=== PATIENT | male | born 1965 | race Hispanic/Latino ===

== ENCOUNTER → 2017-12-01 | Day surgery (SDC) | payer BC ==
[2017-11-30 12:48] LABS: BASOPHILS # (AUTO) 0.1 (0.0-0.1); BASOPHILS % 0.7 % (0.0-1.0); EOSINOPHILS # (AUTO) 0.4 (0.0-0.4); EOSINOPHILS % 6.1 % (0.0-6.0); HEMATOCRIT 37.1 % (38.2-49.6); HEMOGLOBIN 12.6 g/dL (14.0-18.0); LYMPHOCYTES # (AUTO) 1.7 (1.0-3.2); LYMPHOCYTES % 24.6 % (18.0-39.1); MEAN CORPUSCULAR HEMOGLOBIN 33.8 pg (28-32); MEAN CORPUSCULAR VOLUME 99.5 fL (81-99); MONOCYTES # (AUTO) 0.6 (0.2-0.8); MONOCYTES % 8.8 % (4.4-11.3); NEUTROPHILS # (AUTO) 4.1 (2.1-6.9); NEUTROPHILS % 59.4 % (38.7-80.0); PLATELET COUNT 223 x10e3/uL (140-360); RED BLOOD COUNT 3.73 x10e6/uL (4.3-5.7); RED CELL DISTRIBUTION WIDTH 13.9 % (11.7-14.4)
[2017-11-30 13:05] LABS: ANION GAP 13.9 mmol/L (8-16); CALCIUM 9.3 mg/dL (8.4-10.2); CREATININE, SERUM 1.49 mg/dL (0.72-1.25); POTASSIUM 4.9 mmol/L (3.5-5.1)
--- NOTE | 2017-11-30 13:25 | Diagnostic Imaging Report ---
PROCEDURE:CHEST 2 VIEWS TECHNIQUE:PA and lateral chest INDICATION:Preoperative evaluation for hernia repair COMPARISON:None. FINDINGS: Lungs are clear and symmetrically inflated. No pleural effusions. Normal heart size. Mild central vascular prominence. Intact skeleton. CONCLUSION: Mild central vascular congestion without acute abnormality. Dictated by: Dante Powell M.D. on 11/30/2017 at 13:28 Electronically approved by: Dante Powell M.D. on 11/30/2017 at 13:28
[~2017-12-01] MED LIST: AMLODIPINE BESYL5 MG PO; ASPIR 8181 MG; ATORVASTATIN CA10 MG PO; BUPIVACAINE 0.25%/EPI 30ML SDV INJ ONE; CARVEDILOL12.5 MG PO; CLOPIDOGREL75 MG PO; FENTANYL CITRATE/PF 100MCG/2 ML INJ ONE; FOLIC ACID1 MG PO; HYDROCHLOROTHIA25 MG; ISOSORBIDE DINI20 MG PO; KETAMINE HCL INJ 50 MG/ML 10 ML VIAL ONE; LISINOPRIL2.5 MG PO; MIDAZOLAM HCL 2 MG/2 ML VIAL ONE; PROPOFOL IV EMULSION 10 MG/ML 20 ML VIAL ONE; SEVOFLURANE INHAL SOLN 250 ML PEN BTL ONE
--- OUTSIDE RECORDS SUMMARY | 2017-12-01 08:25 | XMS REPORT ---
Author Author [facility] Address Unknown Phone Unavailable Care Team Providers Care Motor Coach Bus Driver Name Role Phone MACKENZIE BOYCE Unavailable Unavailable Problems This patient has no known problems. Allergies, Adverse Reactions, Alerts This patient has no known allergies or adverse reactions. Medications This patient has no known medications. Results Test Description Test Time Test Comments Text Results Atomic Results Result Comments CHEST 2 VIEWS [place] [address] Patient Name: BEATRIS DANGELO MR #: [id number] : 1965 Age/Sex: 52/M Req #: [id number] Adm Physician: Ordered by: MACKENZIE BOYCE MD Report #: [id number] Location: OR Room/Bed: Procedure: [id number] DX/CHEST 2 VIEWS Exam Date: 11/30/17 Exam Time: 1250 REPORT STATUS: Signed PROCEDURE: CHEST 2 VIEWS TECHNIQUE: PA and lateral chest INDICATION: Preoperative evaluation for hernia repair COMPARISON: None. FINDINGS: Lungs are clear and symmetrically inflated. No pleural effusions. Normal heart size. Mild central vascular prominence. Intact skeleton. CONCLUSION: Mild central vascular congestion without acute abnormality. Dictated by: Terry Powell M.D. on 11/30/2017 at 13:28 Electronically approved by: Terry Powell M.D. on 11/30/2017 at 13:28 Dictated By: TERRY POWELL MD [id number] Transcribed By: MOE on 11/30/17 1328 COPY TO: MACKENZIE BOYCE MD
--- OUTSIDE RECORDS SUMMARY | 2017-12-01 08:25 | XMS REPORT | Clinical Summary ---
Author Author [facility] Address Unknown Phone Unavailable Care Team Providers Care Funnel Setter Name Role Phone Sukhwinder Caldera MD PCP Unavailable Allergies No Known Allergies Current Medications Prescription Sig. Disp. Refills Start End Date Status Date carvedilol (COREG) 25 MG Take 1 tablet (25 mg 180 tablet 3 08/31/19 Active tablet total) by mouth 2 (two) 17 times a day with meals. Take daily folic acid (FOLVITE) 1 MG Take 1 tablet (1 mg 30 tablet 3 08/31/19 Active tablet total) by mouth daily. 17 Take daily hydroCHLOROthiazide Take 1 tablet (25 mg 30 tablet 3 08/31/19 Active (HYDRODIURIL) 25 MG total) by mouth daily. 17 tablet Take daily atorvastatin (LIPITOR) 80 Take 80 mg by mouth Active MG tablet nightly. clopidogrel (PLAVIX) 75 Take 75 mg by mouth Active mg tablet daily. isosorbide mononitrate Take 30 mg by mouth Active (IMDUR) 30 MG 24 hr daily. tablet lisinopril (ZESTRIL) 10 Take 2 tablets (20 mg 30 tablet 0 09/05/19 Active mg tablet total) by mouth daily for 18 30 days. lisinopril Take daily 1 06/30/20 09/05/19 Discontin (PRINIVIL,ZESTRIL) 40 mg 16 18 ued tablet amLODIPine (NORVASC) 10 Take 1 tablet (10 mg 30 tablet 0 09/06/19 mg tablet total) by mouth daily for 18 18 30 days. aspirin (ECOTRIN) 81 MG Take 1 tablet (81 mg 30 tablet 0 09/06/19 enteric coated tablet total) by mouth daily for 18 18 30 days. Active Problems Problem Noted Date Unstable angina 09/03/2017 ANGEL (acute kidney injury) 09/03/2017 CKD (chronic kidney disease) stage 2, GFR 60-89 ml/min 09/03/2017 Cardiomyopathy 10/08/2016 Chronic combined systolic and diastolic congestive heart failure 10/08/2016 Tobacco abuse 10/08/2016 STEMI (ST elevation myocardial infarction) 08/12/2016 Chest pain 07/27/2016 Essential hypertension 07/27/2016 Encounters Date Type Specialty Care Team Description 09/03/2017 Procedure Pass Procedural Cardiology 09/03/2017 Surgery Procedural Cardiology Ramiro Jose Cv left heart cath [51948 MD (CPT )] 09/01/2017 [facility] General Internal Medicine Benjamin Ceballos MD Chest pain, unspecified - Encounter Ryder Caldera MD type (Primary Dx); 09/04/2017 Shortness of breath; Other chest pain; Essential hypertension; Tobacco abuse after 11/30/2016 Family History Medical History Relation Name Comments No Known Problems Father Diabetes Mother Relation Name Status Comments Father Alive Mother Alive Social History Tobacco Use Types Packs/Day Years Used Date Current Every Day Smoker Smokeless Tobacco: Never Used Comments: 6 sticks a day Alcohol Use Drinks/Week oz/Week Comments Yes 4 Cans of 2.4 daily beer Sex Assigned at Date Recorded Not on file Last Filed Vital Signs Vital Sign Reading Time Taken Blood Pressure 154/87 09/04/2017 2:59 PM NURSING EDUCATOR Pulse 63 09/04/2017 2:59 PM NURSING EDUCATOR Temperature 36.1 C (97 F) 09/04/2017 2:59 PM NURSING EDUCATOR Respiratory Rate 20 09/04/2017 2:59 PM NURSING EDUCATOR Oxygen Saturation 99% 09/04/2017 2:59 PM NURSING EDUCATOR Inhaled Oxygen - - Concentration Weight 90.7 kg (200 lb) 09/01/2017 3:05 AM NURSING EDUCATOR Height 172.7 cm (5' 8") 09/01/2017 3:05 AM NURSING EDUCATOR Body Mass Index 30.41 09/01/2017 3:05 AM NURSING EDUCATOR Plan of Treatment Health Maintenance Due Date Last Done Comments COLON CANCER SCREENING 2013 SHINGRIX VACCINE (#1) 2013 INFLUENZA VACCINE 02/02/2018 Implants Implanted Type Area Rewriter Device Expiration Model / Identifier Date Serial / Lot Stent Cor Resolute Integrity Coronary N/A: N/A [employer] [facility] - 2016 [id number] Ztrlims-Eltng Otw 4x18mm - Stents VASCULAR W / [id number] / Implanted: 08/12/2016 (Quantity not [id number] on file) Procedures Procedure Name Priority Date/Time Associated Diagnosis Comments CV LEFT HEART CATH Routine 09/03/2017 Results for this 11:07 AM NURSING EDUCATOR procedure are in the results section. CV STRESS TEST NUCLEAR Routine 09/01/2017 Results for this CARDIO 5:31 PM NURSING EDUCATOR procedure are in the results section. ECHOCARDIOGRAM 2D Routine 09/01/2017 Results for this COMPLETE W MMODE SPECTRAL 4:38 PM NURSING EDUCATOR procedure are in the COLOR DOPPLER (07795) results section. after 11/30/2016 Results * Estimated GFR (09/04/2017 6:12 AM) Only the most recent of 4 results within the time period is included. Component Value Ref Range GFR Non Af Amer 49 (A) mL/min/1.73 m2 GFR Af Amer 59 (A) mL/min/1.73 m2 Comment: Chronic kidney disease: <60 mL/min/1.73m2 Kidney failure: <15 mL/min/1.73m2 The estimated GFR is calculated from the IDMS-traceable Modification of Diet in Renal Disease Equation. The accuracy of the calculation is poor when the creatinine is normal. Calculated values >90 mL/min/1.73m2 are not reported. This equation has not been validated in children (<18 years), women, the elderly (>70 years), or ethnic groups other than Caucasians and Americans. Specimen Performing Laboratory Plasma specimen [facility] DEPARTMENT OF PATHOLOGY AND GENOMIC MEDICINE [address] [place] [address] * CBC with platelet and differential (09/04/2017 6:12 AM) Only the most recent of 3 results within the time period is included. Component Value Ref Range WBC 5.0 4.2 - 11.0 k/uL RBC 3.75 (L) 4.04 - 5.86 m/uL HGB 12.1 (L) 13.0 - 17.3 g/dL HCT 36.3 34.0 - 45.0 % MCV 96.8 80.0 - 98.0 fL MCH 32.3 27.0 - 34.0 pg MCHC 33.3 31.5 - 36.5 g/dL RDW - SD 49.0 37.0 - 51.0 fL MPV 10.6 (H) 7.4 - 10.4 fL Platelet count 176 150 - 400 k/uL Nucleated RBC 0.00 /100 WBC Neutrophils 64.8 36.0 - 66.0 % Lymphocytes 18.9 (L) 24.0 - 44.0 % Monocytes 9.1 (H) 0.0 - 6.0 % Eosinophils 6.4 (H) 0.0 - 6.0 % Basophils 0.6 0.0 - 1.2 % Immature granulocytes 0.2 0.0 - 1.0 % Specimen Performing Laboratory Blood [facility] DEPARTMENT OF PATHOLOGY AND GENOMIC MEDICINE [address] [place] [address] * Phosphorus level (09/04/2017 6:12 AM) Component Value Ref Range Phosphorus 3.0 2.5 - 4.5 mg/dL Specimen Performing Laboratory Plasma specimen [facility] DEPARTMENT OF PATHOLOGY AND GENOMIC MEDICINE [facility] [place] [address] [place] [address] * Magnesium level (09/04/2017 6:12 AM) Component Value Ref Range Magnesium 2.00 1.60 - 2.40 mg/dL Specimen Performing Laboratory Plasma specimen [facility] DEPARTMENT OF PATHOLOGY AND GENOMIC MEDICINE [facility] [place] [address] * Ionized calcium (09/04/2017 6:12 AM) Component Value Ref Range pH 7.34 Ionized calcium 1.22 1.11 - 1.32 mmol/L Specimen Performing Laboratory Plasma specimen [facility] DEPARTMENT OF PATHOLOGY AND [employer] MEDICINE [facility] [place] [address] * Basic metabolic panel (09/04/2017 6:12 AM) Only the most recent of 2 results within the time period is included. Component Value Ref Range Sodium 138 135 - 150 mEq/L Potassium 4.3 3.5 - 5.0 mEq/L Chloride 104 100 - 109 mEq/L CO2 26 24 - 32 mmol/L Anion gap 8 7 - 15 mEq/L Comment: Starting from October , anion gap calculation no longer incorporates potassium. Please note the change. BUN 21 (H) 7 - 18 mg/dL Creatinine 1.5 0.8 - 1.5 mg/dL Glucose 95 65 - 100 mg/dL Calcium 8.5 (L) 8.6 - 10.7 mg/dL Specimen Performing Laboratory Plasma specimen [facility] DEPARTMENT OF PATHOLOGY AND GENOMIC MEDICINE [address] [place] [address] * Cv laboratory engineer procedure (09/03/2017 11:07 AM) Specimen Performing Laboratory [facility] [address] [place] [address] Narrative CARDIAC CATHETERIZATION REPORT Indication: Chest pain. Abnormal stress test Informed consent was obtain. Patient brought to the laboratory engineer. Moderate sedation provided. Right groin infiltrated with with Xylocaine 2%. An attempt was made to access the right common femoral artery which was unsuccessful. Ultrasound probe was taken right common femoral, superficial, profunda were identified.Ultrasound guided one single anterior wall puncture was perform to the femoral artery with a micropuncture system. A [address] [place] sheath was place in. A 6 [place] pig tail, JL4 and 3 DRC catheter were use. Findings Left ventricle: Ejection fraction 55% LVEDP 16 mmHg Systolic pressure was 150 mmHg There is no gradient across the aortic valve. Coronaries: Left main artery is patent. Left anterior descending artery has 30% lesion in an acute bend in mid segment. Diagonal patent Circumflex and OM branches patent Right coronary artery has 50% proximal stenosis, Mid RCA has a patent stent and distal to stent 30% stenosis Interventional procedure FFR report: Due tointermediate lesion a decision made to do FFR and FFR guided therapy. Heparin 7000 units IV was given. 3DRCguide was advanced. FFR wire was advanced into the distal RCA . Continuous hemodynamic monitoring of the aortic pressure and distal RCA pressure recorded. Adenosine infusion 140 mcg/kg/minfused for 2 minutes.Continuous hemodynamic monitoring of the aortic pressure and distal RCA pressure recorded, and FFR calculated. FFR in the distal RAC is0.90 hence the lesion is considered to be hemodynamically non significant, and estimated to be around 50%. Medical treatment opted. Right femoral angiography and Mynx closure device applied for hemostasis. Physician supervised moderate sedation with IV Versed and fentanyl for 63 minutes Continuous monitoring on the pulse oximetry, blood pressure, heart rate, patient consciousness level and patient pain level was performed by independent RN Patient tolerated the procedure well * POC ACT (09/03/2017 11:05 AM) Component Value Ref Range Activated clotting time, 213 seconds POC Specimen Performing Laboratory Blood * Troponin (09/03/2017 4:57 AM) Only the most recent of 3 results within the time period is included. Component Value Ref Range Troponin <0.01 0.00 - 0.60 ng/mL Comment: 0.11 - 1.49 ng/ml May indicate increased risk of acute coronary syndrome. >=1.5 ng/ml Consistent with acute myocardial infarction. The diagnostic value of a single normal or non-diagnostic result is questionable. Serial samples at 2-6 hour intervals are required to rule out acute myocardial injury. Specimen Performing Laboratory Plasma specimen [facility] DEPARTMENT OF PATHOLOGY AND GENOMIC MEDICINE [address] [place] [address] * Comprehensive metabolic panel (09/03/2017 4:57 AM) Only the most recent of 2 results within the time period is included. Component Value Ref Range Sodium 132 (L) 135 - 150 mEq/L Potassium 4.0 3.5 - 5.0 mEq/L Chloride 97 (L) 100 - 109 mEq/L CO2 28 24 - 32 mmol/L Anion gap 7 7 - 15 mEq/L Comment: Starting from October , anion gap calculation no longer incorporates potassium. Please note the change. BUN 24 (H) 7 - 18 mg/dL Creatinine 1.4 0.8 - 1.5 mg/dL Glucose 97 65 - 100 mg/dL Calcium 8.5 (L) 8.6 - 10.7 mg/dL Protein 6.6 6.3 - 8.2 g/dL Albumin 2.8 (L) 3.2 - 5.0 g/dL A/G ratio 0.7 0.7 - 3.8 Alkaline phosphatase 78 30 - 120 U/L AST 14 (L) 15 - 37 U/L ALT 24 (L) 30 - 65 U/L Total bilirubin 0.6 0.2 - 1.2 mg/dL Specimen Performing Laboratory Plasma specimen [facility] DEPARTMENT OF PATHOLOGY AND GENOMIC MEDICINE [address] [place] [address] * ECG 12 lead (09/03/2017 4:53 AM) Only the most recent of 3 results within the time period is included. Component Value Ref Range Ventricular rate 56 Atrial rate 56 CA interval 176 QRSD interval 98 QT interval 456 QTC interval 440 P axis 1 18 QRS axis 1 27 T wave axis 77 EKG impression Sinus bradycardia-Otherwise normal ECG-In automated comparison with ECG of 02-SEP-2017 05:58,-No significant change was found- Specimen Performing Laboratory [facility] [address] [place] [address] * Sodium level, urine, random (09/02/2017 2:32 PM) Component Value Ref Range Sodium, urine, random 43 mEq/L Specimen Performing Laboratory Urine [facility] DEPARTMENT OF PATHOLOGY AND GENOMIC MEDICINE [address] [place] [address] * Osmolality, urine (09/02/2017 2:32 PM) Component Value Ref Range Osmolality, urine 396 50 - 1,400 mOsm/kg Specimen Performing Laboratory Urine [facility] DEPARTMENT OF PATHOLOGY AND GENOMIC MEDICINE [address] [place] [address] * Thyroid stimulating hormone (09/02/2017 9:43 AM) Component Value Ref Range TSH 1.70 0.38 - 4.82 uIU/mL Specimen Performing Laboratory Plasma specimen [facility] DEPARTMENT OF PATHOLOGY AND GENOMIC MEDICINE [address] [place] [address] * T4, free (09/02/2017 9:43 AM) Component Value Ref Range T4, free 1.07 0.70 - 1.61 ng/dL Specimen Performing Laboratory Plasma specimen [facility] DEPARTMENT OF PATHOLOGY AND GENOMIC MEDICINE [address] [place] [address] * Osmolality, serum (09/02/2017 9:43 AM) Component Value Ref Range Osmolality 290 275 - 295 mOsm/kg Specimen Performing Laboratory Blood [facility] DEPARTMENT OF PATHOLOGY AND GENOMIC MEDICINE [address] [place] [address] * Lipid panel (09/02/2017 9:43 AM) Component Value Ref Range Cholesterol 193 120 - 200 mg/dL Triglycerides 1,166 (H) 50 - 150 mg/dL HDL cholesterol 27 (L) 40 - 60 mg/dL LDL cholesterol 68Comment: Result obtained by direct LDL mg/dL measurement Lipid panel See below interpretation Comment: Total Cholesterol (mg/dL) LDL Cholesterol (mg/dL) <200 Desirable <100 Optimal 200-239 Borderline-high 100-129 Near or above optimal >=240 High 130-159 Borderline-high 160-189 High >=190 Very high HDL Cholesterol (mg/dL) Triglycerides (mg/dL) <40 Low <150 Normal >=60 High 150-199 Borderline-high 200-499 High >=500 Very high Risk Catergories that modify LDL goals. Risk Catergories LDL goal (mg/dL) CHD and CHD risk equivalent <100 (10-year risk >20%) Multiple (2+) risk factors <130 (10-year risk=<20%) 0-1 risk factors <160 (<10-year risk) Defining levels of lipids in metabolic syndrome Triglycerides >=150 mg/dL HDL Cholesterol Men <40 mg/dL Women <50 mg/dL Non-HDL cholesterol is a second target for therapy in persons with high triglycerides (>=200 mg/dL) Specimen Performing Laboratory Plasma specimen [facility] DEPARTMENT OF PATHOLOGY AND GENOMIC MEDICINE [address] [place] [address] * CV stress test (09/01/2017 5:31 PM) Component Value Ref Range Resting HR 57 Resting BP 128 Peak MET Achieved 1.0 Protocol Name LEXISCAN Time in Exercise Phase 00:01:26 Max Systolic BP 128 Max Diastolic BP 80 Max Heart Rate 74 Max Predicted Heart Rate 166 Target HR Formula (220 - Age)*85% Test Indication Chest Discomfort Arrhy During Ex none ECG Interp Before EX Normal ECG Interp During Ex none Ex Summary Comment Normal stress test, MYOVIEW TO FOLLOW Chest Pain Statement none Overall HR Response to appropriate Exercise Overall BP Response To normal resting BP - appropriate response Exercise Reason for Termination Protocol Completed... Stress Test Impression Normal stress test, Myoview to follow--Electronically Signed By Rebeca RICHARDSON, Ramiro ([id number]), editor continuity and script Lnadon Hughes ([id number]) on 09/01/2017 4:07:47 PM Target HR 141.10 bpm Specimen Performing Laboratory [facility] [address] [place] [address] Addenda Addendum by Ramiro Jose MD on 09/06/2017 8:57 AM * CV myocardial perfusion (09/01/2017 5:31 PM) Component Value Ref Range Target HR 141.10 bpm Resting HR 57 BPM Resting BP 128/80 mmHg O2 sat rest 95 % Post peak HR 74 bpm Percent HR 52.45 % Post peak BP 128/80 mmHg O2 sat peak 98 % Specimen Performing Laboratory [facility] [address] [place] [address] Addenda Addendum by Ramiro Jose MD on 09/06/2017 9:00 AM Equivocal left ventricular perfusion. Equivocal left ventricular perfusion. No chest pain No exercise induced ST-T changes. No arrhythmias with exercise. Normal heart rate and BP response. Myoview report Diaphragmatic attenuation artifact Can not rule out minimal small inferior defect with some degree of reversibilitydue to attenuation artifact Normal wall motion EF 55 % * Echocardiogram complete w contrast and 3D if needed (09/01/2017 4:38 PM) Component Value Ref Range Velocity Ratio (V1/V2) 0.95 m/s IVS,d 1.44 (A) 0.6 - 1.2 cm EF 69.68 % LVPWD,d 1.10 cm AoV Mean PG 3.60 mmHg AV LVOT peak gradient 5.04 mmHg MV valve area p 1/2 1.81 cm2 method PV Pk Grad 1.82 mmHg E/A ratio 0.67 E wave decelartion time 419.91 msec LVOT Diam,S 2.43 cm LVOT area 4.64 cm2 LVOT Vmax 1.15 m/s LVOT VTI 0.22 m RVOT Vmax 1.11 m/s AoV Peak PG 5.19 mmHg PV Mean Grad 1.00 mmHg MV Peak E Sandor 0.38 m/s MV stenosis pressure 1/2 121.77 ms time MV Peak A Sandor 0.57 m/s AoV Area, Vmax 4.57 cm2 AoV Area, VTI 4.83 cm2 AoV Vmax 1.21 m/s IVS/LVPW,2D 1.31 Left Atrium Dimension 2.74 cm Anterior LV,d 4.18 cm LV,s 2.55 cm LV Vol,d A4C 115.90 ml LV Vol,s A4C 59.46 ml PV VMAX 0.67 m/s PV VTI 0.12 m MV E A ratio 0.66 mmHg PV Vmn 0.47 Ao Root,d,2D 3.23 cm LV CO 3.41 l/min LV SYS VOL 23.54 ml LV LIMA VOL 77.64 ml LV SV Teich 2D 54.10 ml LV Vol s Teich PSAX 23.54 ml LVOT CO 7.27 l/min LVOT HR for LVOT CO 61.50 bpm RVOT pk grad 4.91 mmHg AoV Vmn 0.91 IVS s 2D 1.75 LV FS Cube 2D 38.88 LV FS Teich 2D 38.88 PV AT 60.78 msec AoV VTI 0.25 m LV EF,2D 77.17 % LV EF,A4C 48.70 % Gen Hazel,d A4C 9.06 cm Gen Hazel,s A4C 8.15 cm LV SV,A4C 56.44 % MV AE ratio 1.52 LVOT Vmn 0.70 Aov area Vmn 3.97 cm2 LV Area d A4C 36.18 cm2 LV Area s A4C 24.33 cm2 LV EF A L A4C 49.73 % LVOT mean grad 2.31 mmHg MAX Pred HR 165.84 RVOT mean grad 2.36 mmHg RVOT Vmn 0.71 m/s RVOT VTI 0.26 m 85 of MPHR 140.96 Ao d LA s ratio 1.18 Calc MPHR 165.84 bpm IVS pct thck PLAX 21.32 % LV SV Cube 2D 56.31 ml LV vol d cube 2D 72.97 ml LV vol s cube 2D 16.66 ml LVPW pct thck PLAX 65.73 % LVPW s PLAX 1.83 cm MV Decel slope 0.90 m/s2 Pred Exer Dur R1 9.60 Pred METS R1 9.88 Specimen Performing Laboratory [facility] [address] [place] [address] Narrative There is moderate left ventricular concentric hypertrophy. Left Ventricular ejection fraction is 55 - 60%. Right ventricular size is normal. Left atrium size is mildly dilated. No pericardial effusion Trace mitral valve regurgitation Spectral Doppler shows impaired relaxation pattern of left ventricular diastolic filling. * ECG ED Preliminary Interpretation - NOT AN ORDER (09/01/2017 4:15 AM) Narrative Benjamin Ceballos MD 09/01/20178:50 PM ECG ED Preliminary Interpretation - Not an Order Performed by: BENJAMIN CEBALLOS Authorized by: BENJAMIN CEBALLOS ECG reviewed by ED Physician in the absence of a textile machine mechanic: yes Interpretation: Interpretation: normal Rate: ECG rate:62 ECG rate assessment: normal Rhythm: Rhythm: sinus rhythm Ectopy: Ectopy: none QRS: QRS axis:Normal QRS intervals:Normal Conduction: Conduction: normal ST segments: ST segments:Normal T waves: T waves: normal Comments: Read by Dr. Benjamin Ceballos at 0321 on 09/01/17 * B natriuretic peptide (09/01/2017 4:14 AM) Component Value Ref Range BNP 9 0 - 100 pg/mL Specimen Performing Laboratory Blood [facility] DEPARTMENT OF PATHOLOGY AND GENOMIC MEDICINE [address] [place] [address] * XR Chest 2 Vw (09/01/2017 3:54 AM) Specimen Performing Laboratory [facility] [address] [place] [address] Narrative EXAMINATION: XR CHEST 2 VW CLINICAL HISTORY: Chest Pain COMPARISON:08/11/2016 chest x-ray. IMPRESSION: The lungs are clear. No pleural effusion or pneumothorax. Cardiac silhouette is normal. No acute osseous abnormalities. [facility]-[id number] Procedure Note Hm Interface, Radiology Results Incoming - 09/01/2017 4:01 AM NURSING EDUCATOR EXAMINATION: XR CHEST 2 VW CLINICAL HISTORY: Chest Pain COMPARISON: 08/11/2016 chest x-ray. IMPRESSION: The lungs are clear. No pleural effusion or pneumothorax. Cardiac silhouette is normal. No acute osseous abnormalities. [facility]-[id number] after 11/30/2016 Insurance Payer Benefit Subscriber ID Type Phone Address Plan / Group BCBS EXCHANGE BLUE xxxxxxxxxxxx Exchange ADVANTAGE HMO EXCH
--- NOTE | 2017-12-01 13:21 | Operative Report ---
DATE OF PROCEDURE: December 01, 2017 PREOPERATIVE DIAGNOSIS: Incarcerated umbilical hernia. POSTOPERATIVE DIAGNOSIS: Incarcerated umbilical hernia. OPERATION PERFORMED: Repair of incarcerated umbilical hernia with large Ventralex patch. YIELD IMPROVEMENT ENGINEER: Anish SPENCER. ANESTHESIA: General. COMPLICATIONS: None. ESTIMATED BLOOD LOSS: Minimal. DESCRIPTION OF PROCEDURE: With the patient lying in bed in the supine position under good general anesthesia, the abdomen was prepped with Betadine solution and draped in the usual manner. A semilunar subumbilical incision was made. It was carried down through the subcutaneous tissue down to the fascia. Fascia was then circumferentially dissected around the hernia sac. The hernia sac was then from the umbilicus. There was quite a bit of omentum contained within the hernia sac, but we managed to reduce that back to the intra-abdominal cavity without any difficulty. After this was done, a large Ventralex patch was then placed in the intra-abdominal cavity and deployed without any problems. The mesh was then anchored to the anterior abdominal wall with interrupted sutures of 0 Ethibond, and the midline defect was then closed transversely using interrupted sutures of 0 Ethibond anchoring the mesh on the way out. This gave us a satisfactory closure without any tension. The whole area was then thoroughly irrigated. Perfect hemostasis was ascertained. All layers were infiltrated on the way out with solution of 1/4 percent Marcaine. Umbilicus was then tacked back down to the midline fascia with 3-0 Vicryl. The subcutaneous tissue was approximated with 3-0 Vicryl, and the skin was closed with interrupted vertical mattress sutures of 3-0 silk. A dressing was applied. The sponge, lap and needle count was correct. The patient tolerated the procedure well and returned to the recovery room in stable condition. Job#: [id number] TALITA
== END | disposition home or self-care (01) ==
LOC: OR 08:22
PROVIDERS: ATTEND Surgery
DX: K42.0 Umbilical hernia with obstruction, without gangrene (principal); K74.60 Unspecified cirrhosis of liver; I10 Essential (primary) hypertension; R06.02 Shortness of breath; I25.2 Old myocardial infarction; F17.210 Nicotine dependence, cigarettes, uncomplicated; Z01.810 Encounter for preprocedural cardiovascular examination; Z01.812 Encounter for preprocedural laboratory examination; Z01.818 Encounter for other preprocedural examination; Z79.82 Long term (current) use of aspirin; Z79.02 Long term (current) use of antithrombotics/antiplatelets
CPT/HCPCS: 36415; 49587; 71046; 80048; 85025; 93005; C1781; J2250